=== PATIENT | male | born 1980 | race Two or more races ===

== ENCOUNTER 2021-10-01 10:01 | Emergency (ER) | payer BC, OTHER ==
[~2021-10-01] VITALS: Ht 170.2 cm; Wt 99.8 kg
[2021-10-01] MEDS ORDERED: methylPREDNISolone SOD SUCC 125 MG/2 ML VL IM ONE (11:45)
[2021-10-01] MEDS ORDERED: diphenhdrAMINE HCL 50 MG/1 ML VL IM ONE (11:45)
[2021-10-01 11:51] VITALS: BP 127/75
== END 2021-10-01 12:47 | disposition home or self-care (01) ==
LOC: ER 10:01
DX: T78.40XA Allergy, unspecified, initial encounter (principal); X58.XXXA Exposure to other specified factors, initial encounter
CPT/HCPCS: 96372; 99284; J1200; J2930